=== PATIENT | male | born 1950 | race Caucasian/White ===

== ENCOUNTER 2018-10-08 11:29 | Inpatient (IN) | payer OTHER, MEDICAID ==
[2018-10-08] MEDS: DILTIAZEM 25 MG INJ IV (12:17)
[2018-10-08 12:24] LABS: ADD MAN DIFF? NO
[2018-10-08 12:30] LABS: BASOPHILS % 0.5 % (0.0-2.0); EOSINOPHILS # 0.2 10^3/ul (0.0-0.5); EOSINOPHILS % 2.3 % (0.0-7.0); HEMATOCRIT 42.7 % (42.0-52.0); HEMOGLOBIN 15.2 g/dl (14.0-18.0); LYMPHOCYTES # 1.6 10^3/ul (0.8-2.9); MEAN CORPUSCULAR HEMOGLOBIN 31.1 pg (29.0-33.0); MEAN CORPUSCULAR HGB CONC 35.6 g/dl (32.0-37.0); MEAN CORPUSCULAR VOLUME 87.3 fl (82.0-101.0); MEAN PLATELET VOLUME 9.3 fl (7.4-10.4); MONOCYTE # 0.5 10^3/ul (0.3-0.9); MONOCYTES % 6.7 % (0.0-11.0); NEUTROPHIL # 5.6 10^3/ul (1.6-7.5); NEUTROPHILS % 70.2 % (39.0-77.0); PLATELET COUNT 270 10^3/UL (140-415); RED BLOOD COUNT 4.89 10^6/ul (4.70-6.10); RED CELL DISTRIBUTION WIDTH 12.4 % (11.5-14.5)
[2018-10-08 12:30] LABS: WHITE BLOOD COUNT 7.9 10^3/ul (4.8-10.8)
[2018-10-08 12:49] LABS: INR 0.91; PROTIME 12.3 Sec (11.9-14.9)
[2018-10-08 12:50] LABS: PARTIAL THROMBOPLASTIN TIME 28.9 Sec (23.0-35.0)
[2018-10-08] MEDS: DILTIAZEM-D5W 125MG/125ML DRIP 125 ML IV (13:01)
[2018-10-08 13:03] LABS: ALANINE AMINOTRANSFERASE 45 IU/L (13-69); ALBUMIN 4.3 g/dl (3.3-4.9); ALBUMIN/GLOBULIN RATIO 1.38; ALKALINE PHOSPHATASE 145 IU/L (42-121); ANION GAP 14 (5-13); ASPARTATE AMINO TRANSFERASE 41 IU/L (15-46); BILIRUBIN,INDIRECT 1.4 mg/dl (0-1.1); BILIRUBIN,TOTAL 1.4 mg/dl (0.2-1.3); BLOOD UREA NITROGEN 16 mg/dl (7-20); CALCIUM 9.3 mg/dl (8.4-10.2); CARBON DIOXIDE 26 mmol/L (21-31); CHLORIDE 99 mmol/L (97-110); CREATINE KINASE 42 IU/L (23-200); Estimated GFR > 60 mL/min (>60); GLUCOSE 318 mg/dl (70-220); SODIUM 139 mmol/L (135-144); TOTAL PROTEIN 7.4 g/dl (6.1-8.1)
[2018-10-08 13:17] LABS: B-TYPE NATRIURETIC PEPTIDE 103 PG/ML (0-125); CK INDEX 1.2; CK-MB 0.52 ng/ml (0.0-2.4); TROPONIN-I < 0.012 ng/ml (0.000-0.120)
[2018-10-08] MEDS ORDERED: ACETAMINOPHEN 325 MG TAB PO ×2 (13:30→15:30)
[2018-10-08] MEDS ORDERED: ONDANSETRON 4 MG INJ IV ×2 (13:30→15:30)
[2018-10-08] MEDS ORDERED: NACL 0.9% 3 ML SYG IV (15:30)
[2018-10-08 16:15] LABS: THYROID STIMULATING HORMONE 0.843 MIU/L (0.465-4.680)
[2018-10-08] MEDS ORDERED: GLUCAGON 1 MG INJ IM (16:30)
[2018-10-08] MEDS ORDERED: GLUCOSE GEL 15 GRAM TUBE PO ×2 (16:30)
[2018-10-08] MEDS ORDERED: GLUCOSE GEL 15 GRAM TUBE BUCCAL (16:30)
[2018-10-08] MEDS ORDERED: DEXTROSE 50% 50 ML SYRINGE IV ×2 (16:30)
[2018-10-08] MEDS: INSULIN ASPART [NOVOLOG] 3 ML PEN SC ×2 (17:55→21:00)
[2018-10-08] MEDS: METOPROLOL 50 MG TAB PO (18:24)
[2018-10-08] MEDS: DIGOXIN 500 MCG INJ IV (21:10)
[2018-10-08] MEDS: APIXABAN 5 MG TABLET PO (21:10)
[2018-10-08] MEDS: metFORMIN (XR) 500 MG TAB PO (21:10)
[2018-10-09 01:40] LABS: TROPONIN-I < 0.012 ng/ml (0.000-0.120)
[2018-10-09] MEDS: ACCU-CHEK XX (02:00)
[2018-10-09 06:20] LABS: ADD MAN DIFF? NO
[2018-10-09] MEDS: METOPROLOL 50 MG TAB PO (06:23)
[2018-10-09 06:24] LABS: BASOPHIL # 0.1 10^3/ul (0.0-0.1); BASOPHILS % 0.5 % (0.0-2.0); EOSINOPHILS # 0.3 10^3/ul (0.0-0.5); EOSINOPHILS % 2.7 % (0.0-7.0); HEMATOCRIT 43.3 % (42.0-52.0); HEMOGLOBIN 15.6 g/dl (14.0-18.0); LYMPHOCYTES % 20.9 % (15.0-51.0); MEAN CORPUSCULAR HEMOGLOBIN 31.5 pg (29.0-33.0); MEAN CORPUSCULAR VOLUME 87.3 fl (82.0-101.0); MEAN PLATELET VOLUME 9.2 fl (7.4-10.4); MONOCYTE # 0.6 10^3/ul (0.3-0.9); MONOCYTES % 6.4 % (0.0-11.0); NEUTROPHIL # 6.5 10^3/ul (1.6-7.5); NEUTROPHILS % 69.2 % (39.0-77.0); PLATELET COUNT 284 10^3/UL (140-415); RED BLOOD COUNT 4.96 10^6/ul (4.70-6.10); RED CELL DISTRIBUTION WIDTH 12.7 % (11.5-14.5)
[2018-10-09 06:24] LABS: WHITE BLOOD COUNT 9.4 10^3/ul (4.8-10.8)
[2018-10-09 07:01] LABS: CHOLESTEROL 113 mg/dl (100-200)
[2018-10-09 07:01] LABS: ALANINE AMINOTRANSFERASE 45 IU/L (13-69); ALBUMIN 3.6 g/dl (3.3-4.9); ALBUMIN/GLOBULIN RATIO 1.24; ALKALINE PHOSPHATASE 106 IU/L (42-121); ANION GAP 7 (5-13); ASPARTATE AMINO TRANSFERASE 35 IU/L (15-46); BILIRUBIN,INDIRECT 1.5 mg/dl (0-1.1); BILIRUBIN,TOTAL 1.5 mg/dl (0.2-1.3); BLOOD UREA NITROGEN 17 mg/dl (7-20); CALCIUM 9.1 mg/dl (8.4-10.2); CARBON DIOXIDE 28 mmol/L (21-31); CHLORIDE 105 mmol/L (97-110); CHOL/HDL RATIO 3.6 RATIO; CREATININE 0.95 mg/dl (0.61-1.24); Estimated GFR > 60 mL/min (>60); GLUCOSE 173 mg/dl (70-220); HDL CHOLESTEROL 31 mg/dl (30-78); LDL CHOLESTEROL,CALCULATED 40 mg/dl; MAGNESIUM 1.7 mg/dl (1.7-2.5); PHOSPHORUS 3.7 mg/dl (2.5-4.9); POTASSIUM 4.1 mmol/L (3.5-5.1); SODIUM 140 mmol/L (135-144); TOTAL PROTEIN 6.5 g/dl (6.1-8.1); TRIGLYCERIDES 208 mg/dl (0-149)
[2018-10-09 07:04] LABS: HEMOGLOBIN A1C 6.5 % (0-5.9)
[2018-10-09 07:06] LABS: TROPONIN-I < 0.012 ng/ml (0.000-0.120)
[2018-10-09] MEDS: INSULIN ASPART [NOVOLOG] 3 ML PEN SC ×3 (07:55→17:08)
[2018-10-09] MEDS: ASPIRIN 81 MG TAB PO (08:09)
[2018-10-09] MEDS: LISINOPRIL 10 MG TAB PO (08:09)
[2018-10-09] MEDS: APIXABAN 5 MG TABLET PO (08:10)
[2018-10-09] MEDS: AMLODIPINE 5 MG TAB PO (08:10)
[2018-10-09] MEDS: ATORVASTATIN 20 MG TAB PO (08:10)
[2018-10-09] MEDS: metFORMIN (XR) 500 MG TAB PO (08:10)
[2018-10-09] MEDS: HYDROCHLOROTHIAZIDE 12.5 MG CAP PO (08:10)
[2018-10-09] MEDS: REGADENOSON 0.4 MG/5 ML SYG (10:15)
[2018-10-09] MEDS: DILTIAZEM 25 MG INJ IV (12:22)
[2018-10-09] MEDS: METOPROLOL 25 MG TAB PO ×2 (14:46)
[2018-10-09] MEDS ORDERED: METOPROLOL 25 MG TAB PO (21:00)
== END 2018-10-09 18:30 | disposition home or self-care (01) | DRG 310 ==
LOC: E/R 11:29 → TEL 13:01
PROC: C22G1ZZ Tomographic (Tomo) Nuclear Medicine Imaging of Myocardium using Technetium 99m (Tc-99m) (ICD-10-PCS; principal; 2018-10-09)
DX: I48.91 Unspecified atrial fibrillation (principal); E11.9 Type 2 diabetes mellitus without complications; I10 Essential (primary) hypertension; E78.5 Hyperlipidemia, unspecified; Z87.891 Personal history of nicotine dependence
CPT/HCPCS: 71045; 78452; 80053; 80061; 82550; 82553; 82962; 83036; 83735; 83880; 84100; 84443; 84484; 85025; 85610; 85730; 93005; 93017; 93306; 96374; 96375; 99291-25